=== PATIENT | female | born 1970 | race Two or more races ===

== ENCOUNTER 2020-08-30 12:10 | Emergency (ER) | payer OTHER, MEDICAID ==
[~2020-08-30] VITALS: Ht 157.5 cm; Wt 65.0 kg
[2020-08-30] MEDS ORDERED: SODIUM CHLORIDE 0.9% 1000ML BAG (SEPSIS BOLUS) IV ONE (14:45)
[2020-08-30] MEDS ORDERED: KETOROLAC 15MG/ML VIAL IV NR (15:00)
[2020-08-30] MEDS ORDERED: ACETAMINOPHEN 325MG TABLET PO NR (15:00)
[2020-08-30 15:47] LABS: HEMATOCRIT. 35.9 % (36.0-48.0); HEMOGLOBIN. 12.1 g/dL (12.0-16.0); MEAN CORPUSCULAR HEMOGLOBIN 27.1 pg (28.0-32.0); MEAN CORPUSCULAR VOLUME 80.6 fL (81.0-99.0); MEAN PLATELET VOLUME 8.3 fl (7.4-10.4); PLATELET 239 x1000/uL (130-400); RED BLOOD CELL COUNT 4.46 mill/uL (4.2-5.4)
[2020-08-30 15:52] LABS: CHLORIDE 100 mEq/L (98-107); D-DIMER 1.63 mg/L FEU (<0.50); INR 1.2; PROTHROMBIN TIME 12.1 sec (9.6-11.0)
[2020-08-30 16:02] LABS: CREATINE KINASE 43 IU/L (26-192)
[2020-08-30 17:13] LABS: PLATELET ESTIMATE NORMAL
[2020-08-30 19:28] VITALS: BP 127/75
== END 2020-08-30 19:46 | disposition home or self-care (01) ==
LOC: ER 12:40 → CANBEDREQ 08-31 09:21
DX: U07.1 COVID-19 (principal); E86.0 Dehydration; B34.9 Viral infection, unspecified; R11.2 Nausea with vomiting, unspecified; J45.909 Unspecified asthma, uncomplicated; Z98.890 Other specified postprocedural states
CPT/HCPCS: 36415; 71045; 80053; 82550; 82728; 83605; 83615; 83690; 83880; 84145; 84484; 85025; 85379; 85384; 85610; 86140; 87040; 87635; 87804; 93005; 96361; 96374; 99285; C9803; J1885; J7030